=== PATIENT | female | born 1980 | race Hispanic/Latino ===

== ENCOUNTER 2018-04-10 22:55 | Emergency (ER) | payer OTHER ==
--- NOTE | 2018-04-10 23:24 | ED PDOC ---
HPI: Psych/Substance Abuse Time Seen by Provider: 04/10/18 23:07 Chief Complaint (Nursing): Alcohol Ingestion Chief Complaint (Provider): Alcohol Ingestion ED Caveat: Intoxicated History Per: Patient History/Exam Limitations: no limitations Additional Complaint(s): 37 years old female with no significant history brought to the ED for alcohol intoxication. Patient reports she was brought against her wishes. She states she was in [employer] when she was brought as AMS. Patient is offering no medical problems and is requesting to be discharged home. PMD: non provided Past Medical History Reviewed: Historical Data, Nursing Documentation, Vital Signs Vital Signs: Last Vital Signs Temp 99 F 04/10/18 23:03 Pulse 76 04/10/18 23:03 Resp 18 04/10/18 23:03 BP 140/93 H 04/10/18 23:03 Pulse Ox 100 04/10/18 23:03 - Medical History PMH: No Chronic Diseases - Surgical History Surgical History: No Surg Hx - Family History Family History: States: Unknown Family Hx - Social History Current smoker - smoking cessation education provided: No (Unknown) Alcohol: Social Drugs: Other (Unknown) - Allergies Allergies/Adverse Reactions: Allergies Allergy/AdvReac Type Severity Reaction Status Date / Time No Known Allergies Allergy Verified 04/10/18 23:03 Review of Systems ROS Statement: Except As Marked, All Systems Reviewed And Found Negative Physical Exam - Reviewed Nursing Documentation Reviewed: Yes Vital Signs Reviewed: Yes - Physical Exam Appears: Positive for: No Acute Distress Head Exam: Positive for: ATRAUMATIC, NORMOCEPHALIC Neurologic/Psych: Positive for: Alert, Oriented (x 3), Gait (steady), Other ( Fluent speech) - ECG O2 Sat by Pulse Oximetry: 100 (RA) Pulse Ox Interpretation: Normal Medical Decision Making Medical Decision Making: Time: 2314 Initial impression: 37 years old female with alcohol use. Patient is stable for discharge Scribe Attestation: Documented by Gita Sherwood, acting as a scribe for Curtis George MD. Provider Scribe Attestation: All medical record entries made by the Scribe were at my direction and personally dictated by me. I have reviewed the chart and agree that the record accurately reflects my personal performance of the history, physical exam, medical decision making, and the department course for this patient. I have also personally directed, reviewed, and agree with the discharge instructions and disposition. Disposition - Clinical Impression Clinical Impression: Alcohol use - Disposition Disposition: Routine/Home Disposition Time: 23:15 Condition: STABLE Instructions: Alcohol Use - When Is Drinking a Problem? Forms: [facility] ([place])
[2018-04-10 23:44] VITALS: BP 122/58; PULSE 78; RESP 16; TEMP 98.2; O2SAT 98
== END 2018-04-10 23:53 | disposition home or self-care (01) ==
LOC: H.ER 22:55
DX: F10.129 Alcohol abuse with intoxication, unspecified (principal)

== ENCOUNTER 2019-01-15 21:30 | Emergency (ER) | payer OTHER ==
--- NOTE | 2019-01-15 21:44 | ED PDOC ---
HPI: Psych/Substance Abuse Time Seen by Provider: 01/15/19 21:37 Chief Complaint (Nursing): Alcohol Ingestion Chief Complaint (Provider): ETOH History Per: Patient History/Exam Limitations: no limitations Onset/Duration Of Symptoms: Gradual (Pt presents to the ED by EMS after (according to EMS) she feel asleep in an [employer] that was taking her home. Pt denies the need of any medical treatment and is alert, speaking in coherent sentences with a normal gaze and steady gait.) Past Medical History Reviewed: Historical Data, Nursing Documentation, Vital Signs Vital Signs: Last Vital Signs Temp 97.7 F 01/15/19 21:33 Pulse 112 H 01/15/19 21:33 Resp 16 01/15/19 21:33 BP 125/92 H 01/15/19 21:33 Pulse Ox 98 01/15/19 21:33 - Family History Family History: States: Unknown Family Hx - Allergies Allergies/Adverse Reactions: Allergies Allergy/AdvReac Type Severity Reaction Status Date / Time No Known Allergies Allergy Verified 01/15/19 21:40 Review of Systems ROS Statement: Except As Marked, All Systems Reviewed And Found Negative (Pt denies all ROS) Physical Exam - Reviewed Nursing Documentation Reviewed: Yes Vital Signs Reviewed: Yes - Physical Exam Appears: Positive for: Well, No Acute Distress. Negative for: Uncomfortable Head Exam: Positive for: ATRAUMATIC, NORMAL INSPECTION Skin: Positive for: Normal Color, Warm, Dry. Negative for: Diaphoresis, Pallor, Rash Eye Exam: Positive for: Normal appearance, PERRL. Negative for: Nystagmus, Periorbital swelling, Periorbital tenderness Neck: Positive for: Normal, Painless ROM, Supple. 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 Negative for: Motor/Sensory Deficits, Aphasia - ECG O2 Sat by Pulse Oximetry: 98 Medical Decision Making Medical Decision Making: I: Alcohol Use P: Cerebellar tests satisfactory Pt denies need for any emergency medical service; Pt has a steady gait, is ambulating without assistance, speaking in coherent and clear sentences and is stable and safe for discharge Pt will be discharged pending satisfactory vitals Disposition - Clinical Impression Clinical Impression: Alcohol use - Patient ED Disposition Is Patient to be Admitted: No Counseled Patient/Family Regarding: Diagnosis - Disposition Disposition: Routine/Home Disposition Time: 21:57 Condition: STABLE Forms: [facility] ([place])
[2019-01-15 22:05] VITALS: RESP 18
[2019-01-15 22:11] VITALS: O2SAT 98
[2019-01-16 07:30] VITALS: BP 122/79; PULSE 82; TEMP 97.9
== END 2019-01-15 22:03 | disposition home or self-care (01) ==
LOC: H.ER 21:30
DX: F10.10 Alcohol abuse, uncomplicated (principal)